=== PATIENT | male | born 1935 | race Caucasian/White ===

== ENCOUNTER 2018-08-19 14:34 | Inpatient (IN) ==
[2018-08-19] MEDS ORDERED: 0.9 % Sodium Chloride 1,000 ML ONE (14:54)
[2018-08-19] MEDS ORDERED: 0.9 % Sodium Chloride 1,000 ML IVC ONE (14:55)
[2018-08-19] MEDS ORDERED: Isovue-370 500 ML BOTTLE IVP ONE ×2 (14:57→15:38)
--- NOTE | 2018-08-19 15:45 | Emergency Department Note ---
Disposition Clinical Impression: Weakness, Confusion Disposition: Admitted As Inpatient Condition: Good Time of Disposition: 17:18 General Adult HPI - General Chief complaint: ED Altered Mental Status Stated complaint: Chest Pain Time Seen by Provider: 08/19/18 14:37 Source: patient Mode of arrival: ambulatory Limitations: no limitations Nursing Notes Reviewed: Yes Vital Signs Reviewed: Yes - History of Present Illness HPI Narrative: Patient is an 82-year-old male that presents emergency department from the [facility] via EMS for reports of altered mentation after having an outpatient procedure of a carotid Doppler. Patient states that he was therefore the procedure and felt that he was feeling confused. Patient's family was at bedside and the procedure and also felt that he was more confused. Family reports that he has had a previous stroke that affected his right side and his right eye. They state that he has been following with for this since his last stroke. Patient's also states that she feels like he has been having TIAs recently. States that he seems like he will not feel well and the little more weak and has to go lie down social help him to the room and go lie down. Patient has not been following with anyone due to these TIAs. Family states that [facility] still [facility]. They did an extensive workup including laboratory testing as well as a CT scan of the patient's head. Patient denies having any pain at this time. Patient is also reported to be hypotensive at the [place] in the 60s to 70s. Pain Scale: 4 - Related Data Allergies Allergy/AdvReac Type Severity Reaction Status Date / Time Penicillins Allergy Rash Verified 08/19/18 14:55 All systems ED: reviewed and negative except as stated. Constitutional: Denies: fever Cardiovascular: Denies: chest pain Respiratory: Denies: dyspnea Gastrointestinal: Denies: abdominal pain Neurological: Reports: headache Past Medical History - Past Medical History Medical history: Reports: other Psychiatric history: Reports: no psych history - Social History Smoking Status: Never smoker Smokeless Tobacco Status: No Alcohol use: Reports: unknown Drug use: Reports: none Physical Exam - General Limitations: no limitations General appearance: alert, in no apparent distress - Head Head exam: atraumatic, normocephalic - Eye Eye exam: Present: EOMI, other (Patient's right pupil is dilated however this is at the patient's baseline.) - Neck Neck exam: Present: normal inspection, full ROM, trachea midline - Respiratory Respiratory exam: Present: normal lung sounds bilaterally. Absent: respiratory distress, wheezes - Cardiovascular Cardiovascular exam: Present: regular rate, normal rhythm, normal heart sounds, +S1, +S2 - Abdominal Exam Abdominal exam: Present: soft, Non-Tender, normal bowel sounds - Neurological Exam Neurological exam: Present: alert, oriented X3 - Expanded Neurological Exam Speech: Present: fluid speech Cranial nerves: EOM function (II, III, IV, ): Normal, facial sensation (V): Normal, facial palsy (VII): Normal, gag reflex (IX): Normal, spinal accessory function (XI): Normal, tongue deviation (XII): Normal Cerebellar function: finger to nose: Normal Motor strength - LUE: 5/5 Motor strength - RUE: 5/5 Motor strength - LLE: 4/5 Motor strength - RLE: 4/5 Upper motor neuron exam: pronator drift: Absent bilaterally Sensory exam upper extremity: light touch: Normal Sensory exam lower extremity: light touch: Normal Coma Scale Eye Opening: Spontaneous Coma Scale Motor Response: Obeys Commands Coma Scale Verbal Response: Oriented Coma Scale Total: 15 - Psychiatric Psychiatric exam: Present: normal affect, normal mood - Skin Skin exam: Present: warm, dry, intact Course Vital Signs Temperature 97.7 F 08/19/18 14:40 Pulse Rate 93 08/19/18 14:40 Respiratory Rate 20 08/19/18 14:40 Blood Pressure 79/64 08/19/18 14:40 O2 Sat by Pulse Oximetry 93 08/19/18 14:40 Temperature 97.7 F 08/19/18 14:40 Pulse Rate 79 08/19/18 15:09 Respiratory Rate 22 08/19/18 15:09 Blood Pressure 143/76 08/19/18 15:09 O2 Sat by Pulse Oximetry 98 08/19/18 15:09 Oxygen Delivery Oxygen Delivery Room Air Medical Decision Making - MDM Narrative Medical decision making narrative: Due the patient is not emergency Department with reports of altered mentation and having extensive workup at outside facility we will not rescan his head or repeat laboratory testing and was ready completed. We will obtain a urinalysis as well as a CTA of the chest abdomen and pelvis due to the patient having unequal blood pressures in the left and right upper extremity. Chest CTA was negative for dissection or pulmonary emboli. 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 There is reconstitution of flow into the internal/external iliacs. Patient did report that he does have at times but cool feeling in his right hand. At this time he has good distal perfusion and is complaining of no coolness or pain. Patient is feeling significantly better at this time and does not have any confusion. However due to the patient having an episode of confusion as well as weakness and discrepancy in his upper extremity blood pressures I feel that is most appropriate for him to be admitted to the hospital. I called and spoke with the admitting hospitalist Dr. Lindquist and he is accepted the patient to their service. Patient be admitted to the hospital at this time for further evaluation and management. The patient and family were at bedside and were in agreement with this plan. - Medical Records Medical records reviewed: Yes I reviewed the patient's medical records. - Lab Data Lab results reviewed: Yes I reviewed the patient's lab results. Lab Results 08/19/18 Range/Units 15:51 Urine Color Yellow (Yellow) Urine Clarity Clear (Clear) Urine pH 7.0 (5.0-8.0) pH Units Ur Specific [place] 1.013 (1.010-1.025) Urine Protein Negative (Neg-Trace) mg/dL Urine Glucose (UA) Normal (Normal) mg/dL Urine Ketones Negative (Negative) mg/dL Urine Blood Negative (Negative) Urine Nitrite Negative (Negative) Urine Bilirubin Negative (Negative) Urine Urobilinogen Normal (Normal) mg/dL Ur Leukocyte Esterase Negative (Negative) Ur Culture Indicated? NO (NO) - Radiology Data Radiology results reviewed: Yes I reviewed the patient's radiology results. Chest CTA 08/19/18 14:57 IMPRESSION: No evidence of pulmonary embolism. Mild bilateral lower lobe dependent consolidation likely reflects atelectasis. 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 Reconstitution of flow to the internal and external iliac arteries as above. There is relatively poor opacification of the right common femoral artery and non opacification of the visualized right superficial femoral artery. The deep femoral arterial system is well opacified. Mild ectasia of the infrarenal aorta. No evidence for dissection. Chronic soft tissue findings in the abdomen and pelvis without acute inflammatory change identified. D/ / Jose M Yanez / Jose M Yanez Interpreting Provider: Jose M Yanez - EKG Data EKG #1 EKG attestation: Yes I reviewed and interpreted this EKG. EKG results narrative: EKG shows a sinus rhythm at a rate of 84 beats minute, MI interval of 235, QRS duration of 122, QTC 469. There is no evidence of STEMI and EKG. Attestation Statement - Attestation Attestation: I, José Luis Zepeda, examined this patient and my medical decision-making was reviewed with the OPTOMETRIC ASSISTANT/PA/Advanced Practice Nurse/Resident Physician. I agree with the documented findings, disposition and treatment plan as described except to the extent set forth below. 82-year-old male presents emergency Department with concerns of altered mental status and hypotension. [facility] a [facility] Doppler performed. Patient was noted to have acute onset of weakness and fatigue. [facility] and [facility] was very [facility]. They sent him for further evaluation. Repeat evaluations upon evaluation in the emergency department should that he was hypotensive in the right arm and had a normal blood pressure in the left upper extremity. 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 Patient will be admitted to hospitalist for further care and evaluation.
[2018-08-19 16:23] LABS: Bilirubin,Urine Negative (Negative); Blood,Urine Negative (Negative); Clarity,Urine Clear (Clear); Color,Urine Yellow (Yellow); Glucose,Urine (UA) Normal (Normal); Ketones,Urine Negative (Negative); Leukocyte Esterase,Urine Negative (Negative); Nitrite,Urine Negative (Negative); Protein,Urine Negative (Neg-Trace); Specific Gravity,Urine 1.013 (1.010-1.025); Urobilinogen,Urine Normal (Normal)
[2018-08-19] MEDS ORDERED: Naloxone 0.4 MG/ML INJ IVP PRN (23:16)
[2018-08-19] MEDS ORDERED: 0.9 % Sodium Chloride 1,000 ML IVC SCH (23:30)
[2018-08-20 00:57] LABS: Bilirubin,Urine Negative (Negative); Blood,Urine Negative (Negative); Clarity,Urine Clear (Clear); Color,Urine Yellow (Yellow); Glucose,Urine (UA) Normal (Normal); Ketones,Urine Negative (Negative); Leukocyte Esterase,Urine Negative (Negative); Nitrite,Urine Negative (Negative); PH,Urine 5.5 pH Units (5.0-8.0); Protein,Urine Negative (Neg-Trace); Specific Gravity,Urine > 1.030 (1.010-1.025); Urobilinogen,Urine Normal (Normal)
[2018-08-20] MEDS: *HR* Heparin 5,000 UNIT/ML VIAL SQ SCH ×3 (01:19→18:21)
[2018-08-20] MEDS: Aspirin Enteric Coated 325 MG Tablet PO SCH ×2 (01:19→09:33)
[2018-08-20 01:29] LABS: Basophils % 0.3 %; Eosinophils # 0.1 K/mcL (0.0-0.6); Eosinophils % 1.3 %; Hematocrit 42.9 % (37.5-50.1); Hemoglobin 14.9 g/dL (12.9-16.9); Immature Granulocytes % 0.2 % (0-4); Lymphocytes # 2.6 K/mcL (0.6-4.6); Lymphocytes % 26.5 %; Mean Corpuscular HGB Conc 34.7 g/dL (31.6-35.5); Mean Corpuscular Hemoglobin 30.4 pg (28.0-33.3); Mean Corpuscular Volume 87.6 fL (83.0-100.0); Mean Platelet Volume 11.3 fL (9.4-12.4); Monocytes # 1.4 K/mcL (0.0-1.3); Monocytes % 14.5 %; Neutrophils # 5.6 K/mcL (1.6-8.9); Platelet Count 209 K/mcL (140-400); Red Cell Distribution Width 13.8 % (11.5-14.5); Segmented Neutrophils % 57.2 %
[2018-08-20 01:39] LABS: INR 1.2; Prothrombin Time 13.3 Seconds (9.4-12.1)
[2018-08-20 01:47] LABS: Chol/HDL Ratio 3.5 (0-4.9)
[2018-08-20 01:48] LABS: Alanine Aminotransferase 34 Units/L (7-52); Albumin 3.8 g/dL (3.5-5.7); Albumin/Globulin Ratio 1.6 (1.1-2.2); Alkaline Phosphatase 60 Units/L (34-104); Aspartate Amino Transferase 25 Units/L (13-39); BUN/Creatinine Ratio 18 (6-26); Bilirubin,Total 0.5 mg/dL (0.3-1.0); Blood Urea Nitrogen 20 mg/dL (8-23); Calcium 9.1 mg/dL (8.6-10.3); Carbon Dioxide 23 mEq/L (23-29); Chloride 106 mEq/L (98-107); Globulin 2.4 g/dL (2.4-3.5); Glucose 147 mg/dL (70-105); Magnesium 1.8 mg/dL (1.6-2.6); Osmolality,Calculated 293 (280-300); Potassium 3.6 mEq/L (3.5-5.1); Sodium 139 mEq/L (136-145); Total Protein 6.2 g/dL (6.4-8.9); eGFR For Non-African Americans > 60 (> 60)
--- NOTE | 2018-08-20 06:27 | Internal Med History&Physical ---
Date of Encounter: 08/20/18 Time of Encounter: 01:00 Internal Medicine - H&P: HPI Chief complaint: AMS History of present illness: Mr. 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 Patient states that after laying down supine for the procedure, he felt he didnt feel right. Patient's family was at bedside during the procedure and felt that he was more confused. He was noted to be very short of breath. Family reports that he has had a previous stroke that affected his right side and his right eye. They state that he has been following with for this since his last stroke. Patient's also states that she feels like he has been having TIAs recently. States that he seems like he will not feel well and the little more weak and has to go lie down social help him to the room and go lie down. Sada tavares has not been following with anyone due to these TIAs. Family states that he has [facility] some [facility] but still not the baseline. An extensive workup including laboratory testing as well as a CT scan of the patient's head. Patient denies having any pain at this time. Patient is also reported to be hypotensive at the [place] in the 60s to 70s. On arrival patient was hemodynamically stable with no evidence of hypotension. He appears to be back to his baseline on my assessment. Past Med Surg Social Fam HX - Past Medical History Medical history: other Additional medical history: radiation seeds Psychiatric history: no psych history - Past Surgical History Surgical History: appendectomy - Social History Smoking Status: Never smoker Smokeless Tobacco Status: No Alcohol use: unknown Drug use: none - Family History Mother Living Status: Cause of : [place] Hx Family Cardiac Disorders: Yes ([place]) Father Living Status: Cause of : stroke Hx Family Cardiac Disorders: Yes Hx Family Neurologic Disorders: Yes (Stroke) Paternal Grandfather Living Status: Cause of : stroke Hx Family Neurologic Disorders: Yes (stroke) Brother Living Status: Hx Family Cancer: Yes Internal Medicine - H&P: Meds Allergy/AdvReac Type Severity Reaction Status Date / Time Penicillins Allergy Rash Verified 08/19/18 14:55 All Systems PM: A 10-system review of systems was performed and is negative for pertinent findings except as documented above in the HPI. - Constitutional Constitutional: no chills, no fever(s), no night sweats - EENT Eyes: no change in vision, no discharge, no pain, no photophobia Ears: no ear discharge, no ear pain, no tinnitus Nose, mouth and throat: no dysphagia, no nasal discharge, no neck pain, no sore throat - Cardiovascular Cardiovascular ROS IM: no chest pain, no diaphoresis, no dyspnea, no lightheadedness, no palpitations, no syncope - Respiratory Respiratory: no cough, no dyspnea, no wheezing, no excessive phlegm production - Gastrointestinal Gastrointestinal: no abdominal pain, no diarrhea, no hematemesis, no hematochezia, no melena, no nausea, no vomiting - Musculoskeletal Musculoskeletal ROS IM: no numbness, no tingling - Integumentary Integumentary IM: no rash, no unusual bruising - Neurological Neurological ROS: no confusion, no convulsions, no focal weakness, no numbness, no tingling, no tremor(s) - Hematologic/Lymphatic Hematologic/Lymphatic: no easy bruising - Constitutional Vitals: Temp Pulse Resp BP Pulse Ox 97.8 F 68 16 119/56 91 08/20/18 03:01 08/20/18 03:01 08/20/18 03:01 08/20/18 03:01 08/20/18 03:01 Exam: General: Alert and oriented 3 lying in bed in no acute distress Skin:Normal color, no rash, no lesions. HEENT:EOM, pupils equal, round and reactive. Cardiovascular:Normal S1 & S2, no rubs, murmurs or gallops. No JVD. Pulse regular. Lungs:Normal breath sounds, no wheezes or crackles. Abdomen:Soft, non-tender, no rigidity. Extremities:No deformity, no edema or tenderness, no joint swelling or clubbing. Neurological:Normal cognition; cranial nerves II through XII intact except for a fixed right dilated pupil. Muscle strength 4 out of 5 all on the left upper and lower. 3 out of 5 in the right upper and lower. No evidence of pronator drift. Sensation diminished on the right lower extremity. Pulses:Carotid and radial pulses normal +2. Rest of the physical exam is non contributory Internal Med - H&P Results - Labs CBC & Chem 7: 08/20/18 00:58 08/20/18 00:58 Labs: Short CBC 08/20/18 Range/Units 00:58 WBC 9.7 (4.3-11.1) K/mcL Hgb 14.9 (12.9-16.9) g/dL Hct 42.9 (37.5-50.1) % Plt Count 209 (140-400) K/mcL Neutrophils # 5.6 (1.6-8.9) K/mcL BMP 08/20/18 00:58 Sodium 139 Potassium 3.6 Chloride 106 Carbon Dioxide 23 BUN 20 Creatinine 1.10 Glucose 147 H Calcium 9.1 Cardiac Enzymes 08/20/18 Range/Units 00:58 Troponin I < 0.03 (< 0.04) ng/mL Liver Function 08/20/18 Range/Units 00:58 Total Bilirubin 0.5 (0.3-1.0) mg/dL AST 25 (13-39) Units/L ALT 34 (7-52) Units/L Alkaline Phosphatase 60 (34-104) Units/L Albumin 3.8 (3.5-5.7) g/dL Urine 08/19/18 08/20/18 Range/Units 15:51 00:40 Urine Color Yellow Yellow (Yellow) Urine Clarity Clear Clear (Clear) Urine pH 7.0 5.5 (5.0-8.0) pH Units Ur Specific [place] 1.013 > 1.030 H (1.010-1.025) Urine Protein Negative Negative (Neg-Trace) mg/dL Urine Glucose (UA) Normal Normal (Normal) mg/dL - Impressions ITS Impressions Chest CTA 08/19/18 14:57 IMPRESSION: No evidence of pulmonary embolism. Mild bilateral lower lobe dependent consolidation likely reflects atelectasis. 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 Reconstitution of flow to the internal and external iliac arteries as above. There is relatively poor opacification of the right common femoral artery and non opacification of the visualized right superficial femoral artery. The deep femoral arterial system is well opacified. Mild ectasia of the infrarenal aorta. No evidence for dissection. Chronic soft tissue findings in the abdomen and pelvis without acute inflammatory change identified. D/ / Jose M Yanez / Jose M Yanez Interpreting Provider: Jose M Yanez - Assessment and plan (1) Confusion Current Visit: Yes Status: Acute Assessment and plan: Patient presents with an acute change in mental status during outpatient carotid ultrasound which appears to have resolved. Patient has a previous history of CVA with residual right-sided weakness and decreased vision in his right eye. On physical exam right-sided weakness was noted as well as a fixed dilated right pupil. Patient cannot confirm if this is new or not. Initial CT scan of the head was unremarkable. Labs unremarkable including negative troponin. Review of his EKG does not show any ischemic changes. Patient currently hemodynamically stable. -Continue with neuro checks -Telemetry -We will obtain echocardiogram and bilateral carotid duplex. -MRI without contrast of the head in the morning (2) Hypotension Current Visit: Yes Status: Acute Assessment and plan: Patient was noted to have a significant discrepancy with blood pressure assessment taken in each arm. CTA of the chest, abdomen and pelvis did not show any evidence of dissection. As time cannot explain why there was significant discrepancy but blood pressure appears to be back to baseline. -We will continue to monitor for now. Qualifiers: Hypotension type: unspecified hypotension type Qualified Code(s): I95.9 - Hypotension, unspecified (3) Hyperlipidemia Current Visit: Yes Status: Acute Assessment and plan: Continue with home statin Qualifiers: Hyperlipidemia type: unspecified Qualified Code(s): E78.5 - Hyperlipidemia, unspecified (4) Diabetes Current Visit: Yes Status: Acute Assessment and plan: Blood glucose checks. Sliding scale insulin. Diabetic diet. 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
[2018-08-20 10:13] LABS: Estimated Average Glucose 163 mg/dl; Hemoglobin A1C 7.3 %
[2018-08-20] MEDS ORDERED: *HR* LORazepam 2 MG/ML VIAL IVP ONE (14:26)
--- NOTE | 2018-08-20 14:44 | Internal Med Progress Note ---
Hospitalist Progress Note - Encounter Date of Encounter: 08/20/18 Time of Encounter: 14:47 - Subjective Interval History: Mr. 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 Patient states that after laying down supine for the procedure, he felt he didn't feel right. Patient's family was at bedside during the procedure and felt that he was more confused. Patient's also states that she feels like he has been having TIAs recently. Patient is also reported to be hypotensive at the [place] in the 60s to 70s. On arrival patient was hemodynamically stable with no evidence of hypotension. He was admitted in the hospital and placed him on child monitor. He is alert, awake and O x 3. Denied any CP / SOB. - Exam Vitals: Temp Pulse Resp BP Pulse Ox 97.4 F L 66 18 137/71 94 08/20/18 11:15 08/20/18 11:15 08/20/18 11:15 08/20/18 11:15 08/20/18 11:15 Exam: Gen: Alert, awake, Oriented to time,place and person Chest: Diminished breath sounds B/L, No wheezing, No crackles, No rales Heart: S1S2+ RRR No murmurs Abd: Soft, NT, BS +, No organomegaly Ext: No edema, pulses are palpable, No calf tenderness Neuro : Benign findings Skin: No rash. - Assessment and Plan (1) Acute encephalopathy Current Visit: Yes Status: Acute Assessment and Plan: Acute delirium unclear etiology suspecting possible TIA vs CVA bilateral carotid Doppler done waiting for the full report 2D Echo - P Pt does have severe claustrophobia unable to go for MRI of the brain even with Ativan. So will try for open MRI Continue with neuro checks will consult neurology for further evaluation Cont ASA Reviewed FLP - LDL @ 36 No need of statins now (2) Diabetes Current Visit: Yes Status: Acute Assessment and Plan: on sliding scale insulin Diabetic diet. (3) DVT prophylaxis Current Visit: Yes Status: Acute Assessment and Plan: Subcutaneous heparin (4) Hypotension Current Visit: Yes Status: Acute Assessment and Plan: Resolved will try to get patient's home medications to review - Time Spent with Patient Total time spent is greater than 50% in coordination of care (as documented) at patient's floor/unit and/or counseling patient: Internal Medicine: Result - Labs CBC & Chem 7: 08/20/18 00:58 08/20/18 00:58 Labs: Short CBC 08/20/18 Range/Units 00:58 WBC 9.7 (4.3-11.1) K/mcL Hgb 14.9 (12.9-16.9) g/dL Hct 42.9 (37.5-50.1) % Plt Count 209 (140-400) K/mcL Neutrophils # 5.6 (1.6-8.9) K/mcL BMP 08/20/18 00:58 Sodium 139 Potassium 3.6 Chloride 106 Carbon Dioxide 23 BUN 20 Creatinine 1.10 Glucose 147 H Calcium 9.1 Cardiac Enzymes 08/20/18 08/20/18 Range/Units 00:58 05:32 Troponin I < 0.03 < 0.03 (< 0.04) ng/mL Liver Function 08/20/18 Range/Units 00:58 Total Bilirubin 0.5 (0.3-1.0) mg/dL AST 25 (13-39) Units/L ALT 34 (7-52) Units/L Alkaline Phosphatase 60 (34-104) Units/L Albumin 3.8 (3.5-5.7) g/dL Urine 08/19/18 08/20/18 Range/Units 15:51 00:40 Urine Color Yellow Yellow (Yellow) Urine Clarity Clear Clear (Clear) Urine pH 7.0 5.5 (5.0-8.0) pH Units Ur Specific [place] 1.013 > 1.030 H (1.010-1.025) Urine Protein Negative Negative (Neg-Trace) mg/dL Urine Glucose (UA) Normal Normal (Normal) mg/dL - ABG Interpretation ABG results: PT/INR, D-dimer PT 13.3 Seconds (9.4-12.1) H 08/20/18 00:58 - Impressions Impressions Chest CTA 08/19/18 14:57 IMPRESSION: No evidence of pulmonary embolism. Mild bilateral lower lobe dependent consolidation likely reflects atelectasis. 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 Reconstitution of flow to the internal and external iliac arteries as above. There is relatively poor opacification of the right common femoral artery and non opacification of the visualized right superficial femoral artery. The deep femoral arterial system is well opacified. Mild ectasia of the infrarenal aorta. No evidence for dissection. Chronic soft tissue findings in the abdomen and pelvis without acute inflammatory change identified. D/ / Jose M Yanez / Jose M Yanez Interpreting Provider: Jose M Yanez Consult Discharge Plan - Plan Referrals: [facility] [Primary Care Provider] -
[2018-08-20] MEDS ORDERED: *HR* Dextrose 50 % in Water (Syg) 50 ML SYRINGE IVP PRN (15:40)
[2018-08-20] MEDS ORDERED: D5% in Water 1,000 ML IVC PRN (15:40)
[2018-08-20] MEDS ORDERED: Dextrose Gel 15 GM/37.5 ML TUBE PO PRN ×2 (15:40)
[2018-08-20] MEDS: Insulin LISPRO 300 UNITS/3 ML VIAL SQ SCH (18:09)
[2018-08-20] MEDS ORDERED: Insulin LISPRO 300 UNITS/3 ML VIAL SQ SCH (21:00)
[2018-08-21] MEDS: *HR* Heparin 5,000 UNIT/ML VIAL SQ SCH ×3 (00:23→17:24)
--- NOTE | 2018-08-21 07:57 | Electrocardiograph Report ---
[place] [id number] Test Date: 2018-08-19 Pat Name: Jessica Astudillo Department: [id number] Room: 3B Gender: M Emergency Medicine Physician: : [id number] Requested By: Mathew Shepherd Order Number: [id number] Reading MD: Octavio Valentine Measurements Intervals [place] Rate: 84 P: 54 [place]: 235 QRS: 30 QRSD: 122 T: -23 QT: 396 QTc: 469 Interpretive Statements Sinus rhythm Multiform ventricular premature complexes Nonspecific intraventricular conduction delay Borderline T abnormalities, inferior leads Electronically Signed On 08-21-2018 7:55:28 EST by Octavio Valentine
[2018-08-21] MEDS: Aspirin Enteric Coated 325 MG Tablet PO SCH (08:40)
[2018-08-21] MEDS: Insulin LISPRO 300 UNITS/3 ML VIAL SQ SCH ×3 (08:55→17:24)
[2018-08-21] MEDS ORDERED: Isovue-370 500 ML BOTTLE IVP ONE (11:21)
[2018-08-21] MEDS ORDERED: 0.9 % Sodium Chloride 1,000 ML IVC SCH (11:30)
--- NOTE | 2018-08-21 11:53 | Neurology - Consult Note ---
<Gallito Miranda - Last Filed: 08/21/18 16:36> Date of Encounter: 08/21/18 Time of Encounter: 11:43 Assessment and Plan (1) TIA (transient ischemic attack) Current Visit: Yes Status: Acute (2) Visual field defect of right eye Current Visit: Yes Status: Acute Chronic. He reports that he went to an electronics test engineer approximately 6 weeks ago told him that it appears he may have infarcted in his right eye. (3) Altered mental status Current Visit: Yes Status: Acute Patient presented from the [facility] with an altered mental state. He reports that he is concerned that he may be having TIAs. By the time of arrival the patient's mental status had returned to baseline. He is reporting that he has been having symptoms of confusion, disequilibrium, and generalized weakness for the last couple of weeks. On admission the patient also had some hypotension and hypoxia with his SBP in the 70s on arrival. Neurology has been consulted to evaluate the cause of his altered mental state. CT angiogram of both the abdomen and chest did not show any acute findings or cause for hypotension or hypoxia. Given concern for possible TIAs and altered mental state the patient has had TTE was, CT angiogram head and neck and CT head. Per review of the records a CT of the head did not show any evidence for acute intracranial abnormalities. It did show remote insult in the left frontal and parietal lobe and stable remote lacunar infarcts in the right cerebellum, right lentiform nucleus, left internal capsule and bilateral external capsules. CT angiogram head and neck shows moderate narrowing of the intracranial internal carotid arteries, severe narrowing of the innominate and left subclavian artery origin and severe narrowing at the origin of the left vertebral artery. Carotid duplex scans reveals diminished velocities throughout the right carotid system suggesting a proximal stenosis. He is also having diminished velocity in the right subclavian artery as well as diminished blood pressure measurement in the right brachial artery. Left ICA is severe 60-79% stenosis. TTE- EF 60%, mild LVH, mild LVDD and mild aortic sclerosis. Per my exam this afternoon the patient is alert and oriented 3 and does not appear to have any weakness or confusion. Through passive observation he was able to ambulate throughout the room without any focal weakness or fatigue. His neuro examination is nonlateralizing and nonfocal. Furthermore his complaints are also nonlateralizing and nonfocal and nonspecific. 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 He does have some encephalomalacia on the CT of head from the [place] and has chronic white matter changes and remote CVA. He may have an underlying dementia which would contribute the AMS however, per exam he does not necessarily appear demented. I feel that the AMS on presentation was most likely caused by hypoperfusion as he was severely hypotensive and hypoxic. His mental status did improve with improvement in blood pressure which furthermore solidifies his thought process. In regards to the CTA findings of the head and neck and carotid duplex studies I do agree with vascular surgery evaluation. Patient will be started on daily ASA and continue plavix. Continue to closely monitor neurologic status. Qualifiers: Altered mental status type: disorientation Qualified Code(s): R41.0 - Disorientation, unspecified History of Present Illness Chief complaint: AMS HPI: Mr. 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 He presents to [facility] with altered mental state, hypotension ( SBP in the 70's) and hypoxia from [facility]. Neurology has been consulted with concerns for altered mental status, disequilibrium, confusion and concerns for TIA. The patient reports that he has been having intermittent episodes of confusion and generalized weakness. While at the [place] yesterday afternoon undergoing a carotid duplex scan the patient began to develop hypotension, confusion and weakness. The symptoms were transient and resolved by the time of his arrival to the emergency department. Due to his quick onset and resolution of symptoms there appears to be concerned as to whether or not he has had a TIA or if he could have a neurological cause of altered mental state. The patient denies any aggravating factors. Furthermore denies any recent flulike symptoms, ill contacts, dysarthria, dysphasia, unilateral or focal weakness. He does admit to some transient paresthesias but reports that they are not localized and occur intermittently and all 4 extremities. Past Med Surg Social Fam HX - Past Medical History Medical history: other Additional medical history: radiation seeds Psychiatric history: no psych history - Past Surgical History Surgical History: appendectomy - Social History Smoking Status: Never smoker Smokeless Tobacco Status: No Alcohol use: unknown Drug use: none - Family History Mother Living Status: Cause of : DE Hx Family Cardiac Disorders: Yes (DE) Father Living Status: Cause of : stroke Hx Family Cardiac Disorders: Yes Hx Family Neurologic Disorders: Yes (Stroke) Paternal Grandfather Living Status: Cause of : stroke Hx Family Neurologic Disorders: Yes (stroke) Brother Living Status: Hx Family Cancer: Yes Medications and Allergies Amlodipine Besylate 10 mg PO DAILY 08/21/18 [History] Aspirin Enteric Coated [Aspirin EC] 81 mg PO DAILY #30 tablet. 08/21/18 [Rx] Atorvastatin Calcium 80 mg PO HS 08/21/18 [History] Atropine 1% Opth Drops 1 drop RIGHT EYE TID 08/21/18 [History] Benazepril HCl [Lotensin] 40 mg PO DAILY 08/21/18 [History] Calcium/Magnesium [Calcium with Magnesium Tab] 1 tab PO DAILY 08/21/18 [History] Chlorthalidone 25 mg PO DAILY 08/21/18 [History] Cholecalciferol (Vitamin D3) [Vitamin D3] 2,000 unit PO DAILY 08/21/18 [History] Clopidogrel [Plavix] 75 mg PO DAILY 08/21/18 [History] Cyanocobalamin (Vitamin B-12) [Vitamin B12] 1,000 mcg PO DAILY 08/21/18 [History] [place]-3/Dha/Epa/Fish Oil [Fish Oil 1,000 mg Softgel] 1 cap PO DAILY 08/21/18 [History] Prednisolone Acetate/Pf [Prednisolone Acet 1% Eye Drop] 1 drop RIGHT EYE BID 08/21/18 [History] Allergy/AdvReac Type Severity Reaction Status Date / Time Penicillins Allergy HIVES, Verified 08/21/18 09:52 SHAKING, SWELLING All Systems: The remainder of the systems were reviewed and are negative Review of Systems: REVIEW OF SYSTEMS GENERAL: Negative for any nausea, vomiting, fevers, chills, or weight loss + Fatigue with activity NEUROLOGIC: Negative for any facial asymmetry, dysphagia, dysarthria, hemipares is, hemisensory deficits + Right pupil is dilated 5 mm, hemianopsia without direct or compensatory constriction to light, loss of central visual field of right eye. ( He is reporting that an equipment mechanic informed him 6 weeks ago that he had a stroke in his right eye". Intermittent episodes of confusion, dizziness and disequalibrium. Paresthesias bilateral lower extremities with activity; and at times general numbness and tingling all over HEENT: Negative for any head trauma, neck trauma; no recent falls CARDIAC: Negative for any chest pain + Claudication, dyspneic on exertion MUSCULOSKELETAL: Negative - loss of strength + limitations to motor activity or tolerance Physical Examination - Vital Signs Vital Signs: Initial Vital Signs Temp Pulse Resp BP Pulse Ox 97.7 F 93 20 79/64 93 08/19/18 14:40 08/19/18 14:40 08/19/18 14:40 08/19/18 14:40 08/19/18 14:40 - Exam Exam: Examination: General Examination: *CONSTITUTIONAL: Calm, cooperative no acute distress. *GENERAL APPEARANCE OF PATIENT appears stated age, well-groomed. Mild obesity *EYES: Right pupillary dilated and fixed 5 mm, left pupil 2 mm with appropriate constriction and reaction to light and accommodation *CARDIOVASCULAR RRR, S1, S2, no mumurs, rubs, or gallops, no peripheral edema, distal temperature normal, dorsalis pedis pulses normal. Musculoskeletal: *GAIT AND STATION normal, with normal Romberg testing, no abnormalities such as broad base gait or spasticity *ASSESSMENT OF MUSCLE STRENGTH IN THE UPPER AND LOWER EXTREMITIES bilateral deltoid, bicep, tricep, insurance service representative strength, hip flexors ,anterior tibialis, dorsoflexion of the foot 5/5 *MUSCLE TONE IN THE UPPER AND LOWER EXTREMITIES normal. No abnormal movements, fasciculations or atrophy identified. Neurological: *ORIENTATION to time, person, situation and place *RECURRENT AND REMOTE MEMORY intact *ATTENTION AND CONCENTRATION are normal *LANGUAGE FUNCTION no significant aphasia or dysarthia was noted. *FUND OF KNOWLEDGE aware of current events, past history, vocabulary *MENTAL attention span and concentration normal. *CN II optic fundi were normal, no papilledema noted. *CN III,IV, PERRLA extraocular eye movements were full, no nystagmus and no ptosis noted. Right central field visual loss, right pupil without direct or compensatory constriction. *CN V shows normal sensation and jaw opens symmetrically. *CN VII shows normal facial movement symmetrically, upper and lower bi laterally. *CN VIII shows no significant hearing loss *CN IX,,X palate elevated symmetrically *CN XI normal strength in the sternocleidomastoid muscles, symmetrical shoulder shrugging. *CN XII tongue protruded in the midline, with normal strength and movement. *SENSORY EXAMINATION light touch *REFLEXES: deep tendon reflexes were normal and symmetrical , grade 2/4 diffusely, no pathological reflexes were noted. *CEREBELLAR TESTING normal finger to nose, possibly observed ambulation throughout room. Patient's gait is smooth without any spasticity or stiffness. He did not appear to have any disequilibrium. Results - Laboratory Findings CBC and BMP: 08/20/18 00:58 08/20/18 00:58 Abnormal lab findings: Abnormal lab results Monocytes # 1.4 K/mcL (0.0-1.3) H 08/20/18 00:58 PT 13.3 Seconds (9.4-12.1) H 08/20/18 00:58 Glucose 147 mg/dL (70-105) H 08/20/18 00:58 POC Glucose 163 mg/dL (70-99) H 08/20/18 20:18 Hemoglobin A1c 7.3 % (-5.6) H 08/20/18 00:58 Serum Total Protein 6.2 g/dL (6.4-8.9) L 08/20/18 00:58 Triglycerides 160 mg/dL (< 150) H 08/20/18 00:58 VLDL Cholesterol, Calc 32 mg/dL (< 31) H 08/20/18 00:58 HDL Cholesterol 27 mg/dL (40-59) L 08/20/18 00:58 Ur Specific [place] > 1.030 (1.010-1.025) H 08/20/18 00:40 Consult Discharge Plan - Plan Additional Instructions: You can contact Peterson CRISTINA on [facility] at #[phone] ext [phone] regarding approval of procedure for next week. The [facility] contact information is #[phone]. [facility] should contact you when procedure has been approved and Dr. Mittal office will call with surgery schedule and time. Their office number is #[phone] You can also contact [facility] [employer], at #[phone] with any questions Referrals: [facility],PCP [Primary Care Provider] - Pradeep Vega MD [Partnered Physician] - Prescriptions: Aspirin Enteric Coated [Aspirin EC] 81 mg PO DAILY #30 tablet.Roderick Chaudhari - Last Filed: 08/21/18 17:20> Date of Encounter: 08/21/18 Time of Encounter: 17:12 Assessment and Plan (1) TIA (transient ischemic attack) Current Visit: Yes Status: Acute (2) Visual field defect of right eye Current Visit: Yes Status: Acute (3) Altered mental status Current Visit: Yes Status: Acute The assessment and plan were discussed with the OPERATIONS ACCOUNTANT. 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 Apparently he had symptoms of imbalance, confusion, and dizziness. He did not really have any symptoms referable to the left internal carotid stenosis which is shown on carotid Doppler studies. I would opt for conservative management of his vertebral basilar insufficiency with maximizing antiplatelet therapy. I agree with the combination of aspirin and Plavix for now. He may discharge him at yo ur discretion. Certainly risk factor management is paramount. Qualifiers: Altered mental status type: disorientation Qualified Code(s): R41.0 - Disorientation, unspecified History of Present Illness HPI: The chart was reviewed, the patient was seen and examined with the OPERATIONS ACCOUNTANT. All imaging studies were reviewed personally and including the CTA scans. I agree with the history of present illness as stated above. All Systems: The remainder of the systems were reviewed and are negative Review of Systems: The balance of the systems review is negative Physical Examination - Vital Signs Vital Signs: Initial Vital Signs Temp Pulse Resp BP Pulse Ox 97.7 F 93 20 79/64 93 08/19/18 14:40 08/19/18 14:40 08/19/18 14:40 08/19/18 14:40 08/19/18 14:40 - Exam Exam: The patient was examined independently along with the OPERATIONS ACCOUNTANT. Patient does have a right hearing loss otherwise I agree with the neurologic examination above as documented. Results - Laboratory Findings CBC and BMP: 08/20/18 00:58 08/20/18 00:58 Abnormal lab findings: Abnormal lab results Monocytes # 1.4 K/mcL (0.0-1.3) H 08/20/18 00:58 PT 13.3 Seconds (9.4-12.1) H 08/20/18 00:58 Glucose 147 mg/dL (70-105) H 08/20/18 00:58 POC Glucose 137 mg/dL (70-99) H 08/21/18 11:40 Hemoglobin A1c 7.3 % (-5.6) H 08/20/18 00:58 Serum Total Protein 6.2 g/dL (6.4-8.9) L 08/20/18 00:58 Triglycerides 160 mg/dL (< 150) H 08/20/18 00:58 VLDL Cholesterol, Calc 32 mg/dL (< 31) H 08/20/18 00:58 HDL Cholesterol 27 mg/dL (40-59) L 08/20/18 00:58 Ur Specific [place] > 1.030 (1.010-1.025) H 08/20/18 00:40
[2018-08-21] MEDS ORDERED: Lisinopril 20 MG TABLET PO SCH (13:45)
[2018-08-21] MEDS ORDERED: amLODIPine 5 MG TABLET PO SCH (13:45)
[2018-08-21] MEDS ORDERED: PrednisoLONE Acetate 1% Opth 5 ML BOTTLE RIGHT EYE SCH (13:45)
--- NOTE | 2018-08-21 15:53 | Discharge Summary ---
- NOTES TO OUTPATIENT PROVIDER Notes to Outpatient Provider: f/u with [facility] surgery Dr. Vega in one week ( as scheduled ). f/u with PCP in one week. Please start taking Aspirin 81mg along with your Plavix. Orders not resulted at time of discharge: Pending orders 08/20/18 23:18 MR head/brain wo con [MR] Routine 08/21/18 14:58 EV arterial study LE Routine Date of Encounter: 08/21/18 Time of Encounter: 15:51 - Discharge Diagnosis (1) TIA (transient ischemic attack) Priority: Primary Status: Acute (2) Confusion Priority: Primary Status: Acute (3) Hyperlipidemia Priority: Primary Status: Acute Qualifiers: Hyperlipidemia type: unspecified Qualified Code(s): E78.5 - Hyperlipidemia, unspecified (4) Diabetes Priority: Secondary Status: Acute Qualifiers: Chronic kidney disease stage: unspecified stage Qualified Code(s): E08.22 - Diabetes mellitus due to underlying condition with diabetic chronic kidney disease; Z79.4 - group home (current) use of insulin (5) DVT prophylaxis Priority: Secondary Status: Acute (6) Hypotension Priority: Secondary Status: Acute Qualifiers: Hypotension type: unspecified hypotension type Qualified Code(s): I95.9 - Hypotension, unspecified Hospital course: Mr. Astudillo is a 82 year old male with a past medical history of hypertension, hyperlipidemia, diabetes and CVA in 1999 with right-sided residual weakness who presents emergency department from the [facility] via EMS for reports of altered mentation during an outpatient procedure of a carotid Doppler. Patient states that after laying down supine for the procedure, he felt he didn't feel right. Patient's family was at bedside during the procedure and felt that he was more confused. Patient's also states that she feels like he has been having TIAs recently. Patient is also reported to be hypotensive at the [place] in the 60s to 70s. On arrival patient was hemodynamically stable with no evidence of hypotension. He was admitted in the hospital and placed him on director of cardiac rehabilitation. He is alert, awake and O x 3. His serial troponin were negative. His Echo showed LVEF 60%, mild concentric LV hypertrophy and mild LV diastolic dysfunction. His Carotid doppler showed Right carotid system demonstrates a proximal stenosis which also correlates with the diminished velocity in the right subclavian artery and as well as the diminished blood pressure measurement in the right brachial artery, which suggest a stenosis in the innominate artery. Left ICA has a severe, 60-79% stenosis. His CTA of Head and Neck showed Age-indeterminate right cerebellar infarct. Old infarcts involving superior left frontal and parietal lobes. Moderate small vessel ischemic change. Severe narrowing of the innominate and left subclavian artery origins. There is also severe narrowing at origin of left vertebral artery. Pt was evaluated by vascular surgery who recommend an out pt Aortogram and possible stent placement of Rt Innominate artery. Since he just received lot of contrast for CTA, would like to bring him back to his office in a week and do further work up. [facility] CM working with [facility] to facilitate this out pt f/u and procedure. Started him DA therapy with ASA + plavix, recommend to continue high dose Statin Lipitor 80mg. - Time Spent with Patient Total time spent providing and/or coordinating discharge services: - Discharge Medications Prescriptions: Aspirin Enteric Coated [Aspirin EC] 81 mg PO DAILY #30 tablet. Home Medications: Amlodipine Besylate 10 mg PO DAILY 08/21/18 [History] Aspirin Enteric Coated [Aspirin EC] 81 mg PO DAILY #30 tablet. 08/21/18 [Rx] Atorvastatin Calcium 80 mg PO HS 08/21/18 [History] Atropine 1% Opth Drops 1 drop RIGHT EYE TID 08/21/18 [History] Benazepril HCl [Lotensin] 40 mg PO DAILY 08/21/18 [History] Calcium/Magnesium [Calcium with Magnesium Tab] 1 tab PO DAILY 08/21/18 [History] Chlorthalidone 25 mg PO DAILY 08/21/18 [History] Cholecalciferol (Vitamin D3) [Vitamin D3] 2,000 unit PO DAILY 08/21/18 [History] Clopidogrel [Plavix] 75 mg PO DAILY 08/21/18 [History] Cyanocobalamin (Vitamin B-12) [Vitamin B12] 1,000 mcg PO DAILY 08/21/18 [History] [place]-3/Dha/Epa/Fish Oil [Fish Oil 1,000 mg Softgel] 1 cap PO DAILY 08/21/18 [History] Prednisolone Acetate/Pf [Prednisolone Acet 1% Eye Drop] 1 drop RIGHT EYE BID 08/21/18 [History] Allergies/Adverse Reactions: Allergy/AdvReac Type Severity Reaction Status Date / Time Penicillins Allergy HIVES, Verified 08/21/18 09:52 SHAKING, SWELLING Date of admission: 08/20/18 10:29 Primary care physician: [facility]CP [facility] Consults: 08/21/18 08:56 Consult to Neurology [CONS] Routine Consulting Provider: [facility] Reason for Consult: AMS Time Notified: 08:57 Call Completed: Yes 08/21/18 11:17 Consult to Vascular Surgery [CONS] Routine Consulting Provider: Vascular Surgery [facility] Reason for Consult: Rt subclavian stenosis Time Notified: 11:18 Call Completed: Yes - Constitutional Vitals: Temp Pulse Resp BP Pulse Ox 97.7 F 76 16 149/79 93 08/21/18 15:41 08/21/18 15:41 08/21/18 15:41 08/21/18 15:41 08/21/18 15:41 General appearance: Present: cooperative, A&O X 3, no acute distress, answers questions appropriately Exam: Gen: Alert, awake, Oriented to time,place and person HENT; Enlarged Rt pupil Chest: Diminished breath sounds B/L, No wheezing, No crackles, No rales Heart: S1S2+ RRR No murmurs Abd: Soft, NT, BS +, No organomegaly Ext: No edema, pulses are palpable, No calf tenderness Neuro : chronic Rt residual paralysis Skin: No rash. - Patient Status Disposition: Home, Self-Care Condition: Good Overall status at discharge: patient is back to baseline - Discharge Instructions Follow Up With: [facility] [Primary Care Provider] - Pradeep Vega MD [Partnered Physician] - - Diet and Activity Activity: increase activity as tolerated Diet: low salt diet
--- NOTE | 2018-08-21 18:57 | Vascular/Endovasc Consult Note ---
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 As he has had a previous stroke in the left hemisphere I recommended to him that the right innominate artery would be the vessel to treat of choice. Unfortunately he has a difficult problem in that the distal aorta appears occluded on CT scanning and so access via the femoral artery may not be possible unless the stenosis can be passed. The patient and family had and I discussed this in some detail. If this is not possible the patient will need to have a right brachial artery approach in a retrograde manner. I recommended that this attempt at the femoral approach and aortic and innominate intervention be performed next week. All questions were answered. The patient wishes to proceed. He is aware of the potential risk of stroke associated with innominate artery angioplasty. (2) Subclavian artery stenosis, left Current Visit: Yes Status: Chronic Patient has left subclavian artery disease. This is reflected by loss of pulse and diminished flow. For the time being this area will not be addressed. This will be treated medically rather than through interventional therapy. (3) Chronic distal aortic occlusion Current Visit: Yes Status: Chronic Patient has occlusion of the distal aorta by CT scanning. This appears to be a chronic process. This is the most likely explanation for his lower extremity claudication. I recommended that the patient undergo noninvasive segmental testing of the lower extremity system. We would attempt to pass through the aortic occlusion and stent at at least one of the iliac systems. The patient may require a femoral-femoral bypass graft. He is not a candidate for direct aortic reconstruction. - History of Present Illness Consult date: 08/21/18 Consult reason: Abnormal carotid duplex scan Chief complaint: Dizziness and weakness History of present illness: Mr. Astudillo is a 82 year old male Who was admitted on transfer from the outpatient [facility] and her yesterday. The patient was undergoing a carotid duplex scan. The technologist was scanning the right side of his neck when the patient began feeling tired and confused and weak. He was evaluated as an emergency by the medical team there and then he was transferred to [place] for further evaluation. This part of his evaluation a duplex scan was performed as well as further imaging. The patient's family states that he has had previous episodes of confusion and weakness. He denies any seizure activity and his family has not identified any seizure activity. He does have past history of stroke which occurred approximately 18 years ago. This affected his right arm and leg. He also was told that he had some type of an ocular event by recent ophthalmology evaluation. He does have a cataract in his right eye which was recently operated upon. He also was found to have right visual disturbances and deficits. On my visit with the patient this afternoon he is awake and alert. He is com fortable. He is feeling better than before. He has no active complaints. The duplex scan performed yesterday demonstrates very low velocities in the right carotid system indicating proximal disease. The patient went on to have a CT angiogram of the neck and head. This demonstrates significant innominate and left subclavian artery stenosis. The patient also has left vertebral artery origin stenosis. The left vertebral artery is larger than the right vertebral artery and both demonstrate antegrade flow. 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 He also has a right cerebellar stroke that is age indeterminate. Previous scanning of his abdomen and pelvis also demonstrates occlusion of the distal infrarenal aorta. The patient does know that he has difficulties walking and has pain in his calves more in the right side than on the left. He states that he can walk no more than about 100 yards. His legs causing him to stop as well as shortness of breath. Past Med Surg Social Fam HX - Past Medical History Medical history: other Additional medical history: radiation seeds Psychiatric history: no psych history - Past Surgical History Surgical History: appendectomy - Social History Smoking Status: Never smoker Smokeless Tobacco Status: No Alcohol use: unknown Drug use: none - Family History Mother Living Status: Cause of : [facility] Hx Family Cardiac Disorders: Yes ([facility]) Father Living Status: Cause of : stroke Hx Family Cardiac Disorders: Yes Hx Family Neurologic Disorders: Yes (Stroke) Paternal Grandfather Living Status: Cause of : stroke Hx Family Neurologic Disorders: Yes (stroke) Brother Living Status: Hx Family Cancer: Yes Medications and Allergies Amlodipine Besylate 10 mg PO DAILY 08/21/18 [History] Aspirin Enteric Coated [Aspirin EC] 81 mg PO DAILY #30 tablet. 08/21/18 [Rx] Atorvastatin Calcium 80 mg PO HS 08/21/18 [History] Atropine 1% Opth Drops 1 drop RIGHT EYE TID 08/21/18 [History] Benazepril HCl [Lotensin] 40 mg PO DAILY 08/21/18 [History] Calcium/Magnesium [Calcium with Magnesium Tab] 1 tab PO DAILY 08/21/18 [History] Chlorthalidone 25 mg PO DAILY 08/21/18 [History] Cholecalciferol (Vitamin D3) [Vitamin D3] 2,000 unit PO DAILY 08/21/18 [History] Clopidogrel [Plavix] 75 mg PO DAILY 08/21/18 [History] Cyanocobalamin (Vitamin B-12) [Vitamin B12] 1,000 mcg PO DAILY 08/21/18 [History] [place]-3/Dha/Epa/Fish Oil [Fish Oil 1,000 mg Softgel] 1 cap PO DAILY 08/21/18 [History] Prednisolone Acetate/Pf [Prednisolone Acet 1% Eye Drop] 1 drop RIGHT EYE BID 08/21/18 [History] Allergy/AdvReac Type Severity Reaction Status Date / Time Penicillins Allergy HIVES, Verified 08/21/18 09:52 SHAKING, SWELLING All Systems Review: The remainder of the systems were reviewed and are negative Exam Vital Signs, Last 4 Hours Temp Pulse Resp BP Pulse Ox 08/21/18 15:41 97.7 F 76 16 149/79 93 General: Present: Conversant, No Apparent Distress HEENT: Present: Atraumatic, Normocephaly, Trachea midline Neck: Absent: JVD, Left Carotid bruit, Right Carotid bruit, Midline deformity, Tracheal deviation Cardiac: Present: Reg Rate and Rhythm, Normal S1 and S2, No Murmur. Absent: Irregular Rhythm Lungs: Present: Decreased breath sounds Neuro: Present: Alert and responsive, No focal deficits noted Abdomen: Present: Soft, Non-tender. Absent: Masses Vascular: Present: Pulse, absent (Patient has no palpable upper or lower e xtremity pulses.). Absent: Cyanosis, Edema Skin: Present: No rashes noted on visualized skin Consult Discharge Plan - Plan Additional Instructions: You can contact Peterson CRISTINA on [facility] at #[phone] ext [phone] regarding approval of procedure for next week. The [facility] contact information is #[phone]. [facility] should contact you when procedure has been approved and Dr. Jepsens office will call with surgery schedule and time. Their office number is #[phone] You can also contact Katheryn Technical Program Manager, at #[phone] with any questions Referrals: [facility]Primary Care Provider[facility] - Pradeep Vega MD [Partnered Physician] - Prescriptions: Aspirin Enteric Coated [Aspirin EC] 81 mg PO DAILY #30 tablet.
[2018-08-21 19:44] VITALS: BP 153/75
[2018-08-22] MEDS ORDERED: (Omega-3/Dha/Epa/Fish Oil [Fish Oil 1,000 Mg Softgel] PO SCH (09:00)
[2018-08-22] MEDS ORDERED: Cyanocobalamin (B-12) 1,000 MCG TABLET PO SCH (09:00)
== END 2018-08-21 20:00 | disposition home or self-care (01) | DRG 69 ==
LOC: EMEROOARM 14:34 → 3BNU 14:34 → SUATTDRO 18:30 → 3BNU 19:01
PROVIDERS: ADMIT Internal Medicine; ATTEND Family Medicine